=== PATIENT | female | born 1935 | race Caucasian/White ===

== ENCOUNTER 2017-12-14 12:55 | Emergency (ER) | payer MEDICARE ==
--- NOTE | 2017-12-14 13:26 | Emergency Department Record ---
History of Present Illness - General Chief Complaint: Fall Injury Stated Complaint: FALL HIT HEAD Time Seen by Provider: 12/14/17 13:19 Source: Patient, RN notes reviewed Mode of Arrival: Ambulatory - History of Present Illness Initial Comments: fall one week and hit her head and she has continued nausea and vomiting and balance is off MD Complaint: Fall Onset/Timin -: Week(s) Fall From: Down stairs (#) When Fall Occurred: # Days [employer] (7 days) Fall Witnessed: Yes, by family Place Fall Occurred: Home Loss of Consciousness: None Prolonged Down Time?: No Symptoms Prior to Fall: None Location: Head Context: Tripped/slipped Associated Symptoms: Denies - [place] Coma Scale Eye Response: (4) Open spontaneously Motor Response: (6) Obeys commands Verbal Response: (5) Oriented [place] Total: 15 - Related Data Allergies Allergy/AdvReac Type Severity Reaction Status Date / Time cephalexin monohydrate Allergy Unknown ITCHING Verified 12/14/17 13:10 [From [employer]] Travel Screening - Travel/Exposure Within Last 30 Days Have you traveled within the last 30 days?: No - Travel/Exposure Within Last Year Have you traveled outside the [place] in the last year?: No - Additonal Travel Details Have you been exposed to anyone with a communicable illness?: No - Travel Symptoms Symptom Screening: None Review of Systems Reviewed: No additional complaints except as noted below Constitutional: Reports: As per HPI. Denies: Chills, Fever, Malaise, Night sweats, Weakness, Weight change Eyes: Reports: As per HPI. Denies: Eye discharge, Eye pain, Photophobia, Vision change ENT: Reports: As per HPI. Denies: Congestion, Dental pain, Ear pain, Epistaxis , Hearing loss, Throat pain Respiratory: Reports: As per HPI. Denies: Cough, Dyspnea, Hemoptysis, Stridor, Wheezes Cardiovascular: Reports: As per HPI. Denies: Arrhythmia, Chest pain, Dyspnea on exertion, Edema, Murmurs, Orthopnea, Palpitations, Paroxysmal nocturnal dyspnea, Rheumatic Fever, Syncope Endocrine: Reports: As per HPI. Denies: Fatigue, Heat or cold intolerance, Polydipsia, Polyuria Gastrointestinal: Reports: As per HPI, Nausea, Vomiting. Denies: Abdominal pain , Constipation, Diarrhea, Hematemesis, Hematochezia, Melena Genitourinary: Reports: As per HPI. Denies: Abnormal menses, Discharge, Dyspareunia, Dysuria, Frequency, Hematuria, Incontinence, Retention, Urgency Musculoskeletal: Reports: As per HPI, Neck pain. Denies: Arthralgia, Back pain , Gout, Joint swelling, Myalgia Skin: Reports: As per HPI. Denies: Bruising, Change in color, Change in hair/ nails, Lesions, Pruritus, Rash Neurological: Reports: As per HPI, Headache. Denies: Abnormal gait, Confusion, Numbness, Paresthesias, Seizure, Tingling, Tremors, Vertigo, Weakness Psychiatric: Reports: As per HPI. Denies: Anxiety, Auditory hallucinations, Depression, Homicidal thoughts, Suicidal thoughts, Visual hallucinations Hematological/Lymphatic: Reports: As per HPI. Denies: Anemia, Blood Clots, Easy bleeding, Easy bruising, Swollen glands Past Medical History - SOCIAL HISTORY Smoking Status: Current every day smoker Alcohol Use: None Drug Use: None - RESPIRATORY Hx Respiratory Disorders: Yes Hx COPD: Yes - CARDIOVASCULAR Hx Cardio Disorders: No - NEURO Hx Neuro Disorders: No Hx Dizziness: Yes (past week when lying down) - GI Hx GI Disorders: No - Hx Genitourinary Disorders: No Comment:: complete hysterectomy - ENDOCRINE Hx Endocrine Disorders: No - MUSCULOSKELETAL Hx Musculoskeletal Disorders: Yes Hx Arthritis: Yes (fingers) Hx Osteoporosis: Yes - PSYCH Hx Psych Problems: No - HEMATOLOGY/ONCOLOGY Hx Hematology/Oncology Disorders: No Hx Cancer: Yes (uterine cancer) Hx Chemotherapy: No Hx Radiation Therapy: No Hx Blood Transfusions: No Family Medical History Any Significant Family History?: No Physical Exam - General General Appearance: Alert, Oriented x3, Cooperative, No acute distress - Head Head exam: Normal inspection - Eye Eye exam: Normal appearance, PERRL Pupils: Normal accommodation - ENT ENT exam: Normal exam, Mucous membranes moist, Normal external ear exam, Normal orophraynx, TM's normal bilaterally Ear exam: Normal external inspection. negative: External canal tenderness Nasal Exam: Normal inspection. negative: Discharge, Sinus tenderness Mouth exam: Normal external inspection, Tongue normal Teeth exam: Normal inspection. negative: Dental caries Throat exam: Normal inspection. negative: Tonsillar erythema, Tonsillar exudate - Neck Neck exam: Normal inspection, Full ROM. negative: Tenderness - Respiratory Respiratory exam: Normal lung sounds bilaterally. negative: Respiratory distress - Cardiovascular Cardiovascular Exam: Regular rate, Normal rhythm, Normal heart sounds - GI/Abdominal GI/Abdominal exam: Soft, Normal bowel sounds. negative: Tenderness - Rectal Rectal exam: Deferred - exam: Deferred - Extremities Extremities exam: Normal inspection, Full ROM, Normal capillary refill. negative: Tenderness - Back Back exam: Reports: Normal inspection, Full ROM. Denies: Muscle spasm, Rash noted, Tenderness - Neurological Neurological exam: Alert, Normal gait, Oriented X3, Reflexes normal - Psychiatric Psychiatric exam: Normal affect, Normal mood - Skin Skin exam: Dry, Intact, Normal color, Warm Course Vital Signs 12/14/17 13:13 Temperature 98.1 F Pulse Rate 77 Respiratory 18 Rate Blood Pressure 122/68 Pulse Ox 96 - Reevaluation(s) Reevaluation #1: patient is refusing to stay in the hospital and will give one liter of saline and reasses 12/14/17 15:21 12/14/17 16:27 Risks discussed of going home Medical Decision Making - Data Complexity MDM Data: Labs Ordered and/or Reviewed, X-Ray Ordered and/or Reviewed (CT head neg , cervical spine xray neg) - Lab Data Result diagrams: 12/14/17 13:35 12/14/17 13:35 Disposition Clinical Impression: Hyponatremia Vomiting Qualifiers: Vomiting type: unspecified Vomiting Intractability: non-intractable Nausea presence: with nausea Qualified Code(s): R11.2 - Nausea with vomiting, unspecified Fall Qualifiers: Encounter type: initial encounter Qualified Code(s): W19.XXXA - Unspecified fall, initial encounter Disposition: Home, Self-Care Condition: (1) Good Additional Instructions: follow up with Dr. Zaman tomorrow 10:00 am increase salt in diet limit water to one quart a day Forms: Patient Portal Access Time of Disposition: 16:27 Quality - Quality Measures Quality Measures: N/A - Blood Pressure Screening Does Patient Have Any of the Following: No Blood Pressure Classification: Pre-Hypertensive BP Reading Systolic Measurement: 122 Diastolic Measurement: 68 Screening for High Blood Pressure: < Pre-Hypertensive BP, F/U Documented > [ G8950] Pre-Hypertensive Follow-up Interventions: Referral to alternative/primary care provider.
[2017-12-14] MEDS: ONDANSETRON HCL IV 4 MG/2 ML VIAL IVP ONE (13:40)
[2017-12-14 13:55] LABS: BASO % 0.8 % (0-6); EOS % 0.3 % (0-6); GRAN % 65.3 % (47-80); HEMATOCRIT 34.7 % (35.0-47.0); HEMOGLOBIN 11.9 gm/dl (11.6-16.0); LYMPH % 23.4 % (16-45); MEAN CELL VOLUME 89.4 fl (81-97); MEAN CORPUSCULAR HEMOGLOBIN 30.7 pg (27-33); MEAN CORPUSCULAR HGB CONC 34.3 g/dl (32-36); MEAN PLATELET VOLUME 8.5 fl (7.4-10.4); MONO % 10.2 % (0-9); PLATELET COUNT 492 K/uL (130-400); RED BLOOD COUNT 3.88 M/uL (3.80-5.40); RED CELL DISTRIBUTION WIDTH 14.1 % (11.5-14.5); WHITE BLOOD COUNT W/O DIFF 6.1 K/uL (4.2-12.2)
[2017-12-14 14:05] LABS: BLOOD UREA NITROGEN 11 mg/dL (8-23); CREATININE 0.4 mg/dL (0.5-0.9); EST GLOMERULAR FILTRATION RATE > 60 mL/min
[2017-12-14 14:08] LABS: GLUCOSE,RANDOM 88 mg/dL (74-109)
[2017-12-14] MEDS: 0.9 % SODIUM CHLORIDE 1000ML 1,000 ML IV ONE (15:22)
[2017-12-14] MEDS ORDERED: 0.9 % SODIUM CHLORIDE 1000ML 1,000 ML IV SCH (15:30)
--- NOTE | 2017-12-15 19:25 | CT SCAN REPORT ---
EXAM: CT SCAN HEAD WO CONTRAST HISTORY: PATIENT TRIPPED AND FELL AND HIT HEAD WITH HEADACHE, DIZZINESS, NAUSEA , AND VOMITING. TECHNIQUE: Axial CT scan of the head performed without IV contrast. COMPARISON: None. ENCOUNTER: Initial. FINDINGS: No definite acute intracranial hemorrhage identified. No focal mass effect or midline shift apparent. Mild generalized atrophy is present. Chronic- appearing deep white matter changes are seen, nonspecific but likely representing some chronic small vessel deep white matter ischemic disease. No definite acute infarct or intracranial mass lesion seen. Some mild basal ganglia calcification is present bilaterally. No depressed calvarial fracture evident. IMPRESSION: 1. NO DEFINITE ACUTE INTRACRANIAL HEMORRHAGE OR FOCAL MASS EFFECT EVIDENT. 2. GENERALIZED ATROPHY WITH CHRONIC-APPEARING DEEP WHITE MATTER CHANGES. 3. SOME BASAL GANGLIA CALCIFICATION BILATERALLY. JOB NUMBER: [id number] [facility]
--- NOTE | 2017-12-15 19:31 | CT SCAN REPORT ---
EXAM: CT SCAN CERVICAL SPINE WO CONTRAST HISTORY: PATIENT FELL AND HIT BACK OF HEAD LAST WEEK, DIZZY WITH NAUSEA AND VOMITING SINCE. TECHNIQUE: Axial CT scan of the entire cervical spine performed without IV contrast. COMPARISON: No prior cervical CT with which to compare. ENCOUNTER: Initial. FINDINGS: Apical pleural thickening is present bilaterally. No definite fracture of the cervical spine identified. No prevertebral soft tissue swelling is seen. There is narrowing of numerous cervical interspaces, most marked involving the third through the sixth with some associated hypertrophic spurring. There is fusion of the right C4-5 facet articulation and also multilevel facet joint arthropathy in the cervical spine. Mild cervical curve convex to the left. There is central stenosis at the C5-6 and C6-7 levels. Multilevel foraminal stenosis as well. Note is made of a rounded, approximately 7 mm radiolucency in the right side of the body of T2, which is nonspecific. IMPRESSION: 1. NO DEFINITE FRACTURE OR PREVERTEBRAL SOFT TISSUE SWELLING SEEN. 2. DIFFUSE DEGENERATIVE CHANGES IN THE CERVICAL SPINE, DETAILED ABOVE. ASSOCIATED CENTRAL STENOSIS AT THE C5-6 AND C6-7 LEVELS. 3. THERE IS A NONSPECIFIC ROUNDED RADIOLUCENCY IN THE BODY OF T2, APPROXIMATELY 7 MM IN SIZE. JOB NUMBER: [id number] [facility]
== END 2017-12-14 16:39 | disposition home or self-care (01) ==
LOC: ER 12:55
DX: S09.90XA Unspecified injury of head, initial encounter (principal); E87.1 Hypo-osmolality and hyponatremia; R11.2 Nausea with vomiting, unspecified; R42 Dizziness and giddiness; J44.9 Chronic obstructive pulmonary disease, unspecified; G89.29 Other chronic pain; M54.5 Low back pain; M25.551 Pain in right hip; M25.552 Pain in left hip; F17.210 Nicotine dependence, cigarettes, uncomplicated; W01.10XA Fall on same level from slipping, tripping and stumbling with subsequent striking against unspecified object, initial encounter; Y92.009 Unspecified place in unspecified non-institutional (private) residence as the place of occurrence of the external cause
CPT/HCPCS: 70450; 72110; 72125; 80048; 85025; 85730; 96361; 96374; 99284; J2405

== ENCOUNTER 2018-03-20 11:37 | Emergency (ER) | payer MEDICARE ==
[2018-03-20 12:31] LABS: BASO % 0.1 % (0-6); EOS % 0.1 % (0-6); HEMATOCRIT 40.2 % (35.0-47.0); HEMOGLOBIN 13.4 gm/dl (11.6-16.0); LYMPH % 5.6 % (16-45); MEAN CORPUSCULAR HEMOGLOBIN 31.7 pg (27-33); MEAN CORPUSCULAR HGB CONC 33.3 g/dl (32-36); MONO % 3.6 % (0-9); PLATELET COUNT 322 K/uL (130-400); RED BLOOD COUNT 4.23 M/uL (3.80-5.40); RED CELL DISTRIBUTION WIDTH 17.5 % (11.5-14.5); WHITE BLOOD COUNT W/O DIFF 14.9 K/uL (4.2-12.2)
[2018-03-20] MEDS: SODIUM CHLORIDE 0.9% 500 ML IV ONE (12:36)
--- NOTE | 2018-03-20 12:36 | Emergency Department Record ---
History of Present Illness - General Chief complaint: Swelling of legs Stated complaint: LOWER LEG EDEMA/SOB Time Seen by Provider: 03/20/18 11:56 Source: Patient, Family Mode of Arrival: Ambulatory Limitations: No limitations - History of Present Illness Initial comments: The patient is here due to multiple complaints for at least a month. The patient has had progressive weakness with leg swelling, fatigue, weight loss, difficulty swallowing and mild confusion for at least a month. She has seen her PCP multiple times for it and did have a CXR 6 days ago that did demonstrate a large L hilar mass. Now she is not able to ambulate so her family did bring her to the ER. The patient did fall a couple of weeks ago and may have hit her head. MD Complaint: Extremity swelling Onset/Timin -: Month(s) Location: Bilateral, Lower Leg History of Same: Yes Consistency: Constant - Related Data Home Medications Medication Instructions Recorded Confirmed Last Taken Fluticasone Propionate [Flonase] 2 spray EACH NARES DAILY 03/20/18 03/20/18 Unknown Sertraline HCl [Zoloft] 25 mg PO DAILY 03/20/18 03/20/18 03/17/18 Tramadol HCl [Ultram] 50 mg PO BID 03/20/18 03/20/18 Unknown Allergies Allergy/AdvReac Type Severity Reaction Status Date / Time cephalexin monohydrate Allergy Unknown ITCHING Verified 03/20/18 11:59 [From KEFLEX] Travel Screening - Travel/Exposure Within Last 30 Days Have you traveled within the last 30 days?: No - Travel/Exposure Within Last Year Have you traveled outside the [place] in the last year?: No - Additonal Travel Details Have you been exposed to anyone with a communicable illness?: No - Travel Symptoms Symptom Screening: None Review of Systems Constitutional: Denies: Chills, Fever Eyes: Denies: Eye discharge ENT: Denies: Congestion Respiratory: Denies: Cough, Dyspnea Cardiovascular: Reports: Dyspnea on exertion. Denies: Arrhythmia, Chest pain Endocrine: Reports: Fatigue Gastrointestinal: Reports: Abdominal pain, Diarrhea, Nausea Genitourinary: Denies: Dysuria Musculoskeletal: Denies: Arthralgia Past Medical History - SOCIAL HISTORY Smoking Status: Current every day smoker - RESPIRATORY Hx Respiratory Disorders: Yes Hx COPD: Yes - CARDIOVASCULAR Hx Cardio Disorders: No - NEURO Hx Neuro Disorders: Yes Hx Dizziness: Yes (past week when lying down) - GI Hx GI Disorders: No - Hx Genitourinary Disorders: No Comment:: complete hysterectomy - ENDOCRINE Hx Endocrine Disorders: No - MUSCULOSKELETAL Hx Musculoskeletal Disorders: Yes Hx Arthritis: Yes (fingers) Hx Osteoporosis: Yes - PSYCH Hx Psych Problems: No - HEMATOLOGY/ONCOLOGY Hx Hematology/Oncology Disorders: No Hx Cancer: Yes (uterine cancer) Hx Chemotherapy: No Hx Radiation Therapy: No Hx Blood Transfusions: No Family Medical History Any Significant Family History?: No Physical Exam - General General Appearance: Alert, Cooperative, No acute distress - Head Head exam: Atraumatic, Normocephalic, Normal inspection - Eye Eye exam: Normal appearance, PERRL - Neck Neck exam: Normal inspection, Full ROM. negative: Tenderness - Respiratory Respiratory exam: Normal lung sounds bilaterally. negative: Respiratory distress - Cardiovascular Cardiovascular Exam: Irregular rhythm. negative: Normal rhythm - GI/Abdominal GI/Abdominal exam: Other (There is a large very hard mass in the mid abdomen.). negative: Soft - Extremities Extremities exam: Pedal edema (2+ bilaterally.). negative: Normal inspection Course Vital Signs 03/20/18 11:47 Temperature 98.1 F Pulse Rate 111 H Respiratory 20 Rate Blood Pressure 94/59 Pulse Ox 92 L - Reevaluation(s) Reevaluation #1: The patient is resting comfortably with no new complaints. I did discuss the recent results with the patient and family. I did recommend transfer to [facility] and the patient is reluctant to do so. I also did discuss the issues with Dr. Zaman and he agrees with the plan. 03/20/18 14:00 03/20/18 15:40 Reevaluation #2: The patient now is agreeing to the transfer to [facility]. I did discuss the case with Dr. Castaneda who did accept the patient to the hospital. We will send all the lab and xray results with the patient. 03/20/18 15:40 03/20/18 17:26 Medical Decision Making - Data Complexity MDM Data: Labs Ordered and/or Reviewed, X-Ray Ordered and/or Reviewed, EKG Ordered and/or Reviewed - Lab Data Result diagrams: 03/20/18 12:18 03/20/18 12:00 - EKG Data -: EKG Interpreted by Me EKG: No Acute Changes (ST at 106, LAFB, Nonspecific T changes anterior leads. Prolonged QT interval.) - Radiology Data Radiology results: Report reviewed (Head CT: Neg Abd/pelvis CT: Extensive liver met dz with enlargement. Multiple mets to lungs also.) Disposition Disposition: Transfer Clinical Impression: Metastatic cancer Disposition: Acute Care Hospital Transfer Transfer To: [facility] Reason For Transfer: Oncology Accepting Physician: Tonya Time Discussed w/Accepting Physician: 16:08 Condition: (2) Stable Forms: Patient Portal Access Time of Disposition: 16:08 Quality - Quality Measures Quality Measures: N/A - Blood Pressure Screening View Details: Yes Does Patient Have Any of the Following: No Blood Pressure Classification: Pre-Hypertensive BP Reading Systolic Measurement: 137 Diastolic Measurement: 72 Screening for High Blood Pressure: < Pre-Hypertensive BP, F/U Documented > [ G8950] Pre-Hypertensive Follow-up Interventions: Referral to alternative/primary care provider.
[2018-03-20 12:43] LABS: INR 1.1; PARTIAL THROMBOPLASTIN TIME 25.8 SECONDS (24.5-39.1); PROTHROMBIN TIME (PATIENT) 11.5 SECONDS (9.5-12.1)
[2018-03-20 12:45] LABS: BLOOD UREA NITROGEN 36 mg/dL (8-23); CREATININE 0.7 mg/dL (0.5-0.9); EST GLOMERULAR FILTRATION RATE > 60 mL/min
[2018-03-20 12:46] LABS: TOTAL PROTEIN 6.1 g/dL (6.6-8.7)
[2018-03-20 12:48] LABS: GLUCOSE,RANDOM 98 mg/dL (74-109)
[2018-03-20 12:50] LABS: ALBUMIN 3.6 g/dL (4.0-5.0); ALT/SGPT 101 U/L (<33); AST/SGOT 171 U/L (10.0-35.0); BILIRUBIN,DIRECT 1.7 mg/dL (0-0.3)
[2018-03-20 12:51] LABS: ALKALINE PHOSPHATASE 312 U/L (35-104); LIPASE 170 U/L (13-60)
[2018-03-20 13:15] LABS: CREATINE PHOSPHOKINASE 162 U/L (26-192)
[2018-03-20] MEDS: POTASSIUM CHLORIDE 20 MEQ/15ML CUP PO ONE (13:31)
[2018-03-20] MEDS: POTASSIUM CHLORIDE 20 MEQ TABLET PO ONE (13:59)
[2018-03-20 17:11] LABS: URINE APPEARANCE CLEAR; URINE BILIRUBIN MODERATE (NEGATIVE); URINE BLOOD NEGATIVE (NEGATIVE); URINE COLOR ORANGE; URINE GLUCOSE (UA) NEGATIVE (NEGATIVE); URINE KETONE TRACE (NEGATIVE); URINE LEUKOCYTE ESTERASE TRACE (NEGATIVE); URINE NITRITE NEGATIVE (NEGATIVE); URINE UROBILINOGEN >=8.0 E.U./dL (0.20 - 1.00)
[2018-03-20] MEDS: 0.9 % SODIUM CHLORIDE 1,000 ML BAG IV ONE (17:16)
[2018-03-20 17:29] LABS: URINE BACTERIA 1+
[2018-03-20 17:30] LABS: URINE WHITE BLOOD CELL CAST 0-3 /lpf
--- NOTE | 2018-03-21 09:14 | CT SCAN REPORT ---
EXAM: CT OF THE BRAIN HISTORY: FALL. TECHNIQUE: CT of the brain without contrast was obtained. Comparison: Prior CT brain from 12/14/17. FINDINGS: The globes are intact. The paranasal sinuses and mastoid air cells are unremarkable. No displaced or depressed skull fracture. There is a stable area of sclerosis involving the left frontal parietal calvarium. Negative for intra or extraaxial hemorrhage. Bilateral basal ganglia calcifications. CT is limited for the evaluation of acute infarct. No CT evidence for large or territorial acute infarct. Diffuse atrophy with small vessel ischemic change. No mass or midline shift. Stable coarse calcification in the left temporal region. IMPRESSION: 1. NEGATIVE FOR ACUTE INTRACRANIAL ABNORMALITY. ATROPHY WITH SMALL VESSEL ISCHEMIC CHANGE. 2. STABLE NONSPECIFIC SCLEROTIC CHANGE IN THE LEFT FRONTAL PARIETAL CALVARIUM. JOB NUMBER: [id number] [facility]
--- NOTE | 2018-03-21 09:26 | CT SCAN REPORT ---
EXAM: CT OF THE ABDOMEN AND PELVIS WITHOUT CONTRAST HISTORY: FALL. TECHNIQUE: CT of the abdomen and pelvis was performed without oral or IV contrast. This limits evaluation of bowel and solid visceral organs. Comparison: Prior CT from 11/13/12. FINDINGS: Limited evaluation of the lung bases shows emphysematous changes as well as areas of bronchiectasis bilaterally. There is an approximately 2.6 x 1.7 cm cm soft tissue nodule within the lingula as well as an area of nodularity in the medial right lung base measuring 13 mm. Findings are concerning for metastatic disease. Spiculated nodule in the medial right lung base measuring 11 mm is also present. Approximately 9 mm right middle lobe nodule. Approximately 9 mm nodule of the posterior left lung base. The osseous structures show osteopenia with degenerative changes throughout the lumbar spine. Prominent superior end plate Schmorl's node deformity of T12. Probable hemangioma of T12, as before. There are enumerable poorly defined masses within the liver consistent with metastatic disease. Findings appear near from the prior exam. Diffuse hepatomegaly. Splenic granulomata. Limited evaluation of the left adrenal gland and pancreas is unremarkable. The right adrenal gland is not well seen. Nonobstructing 4 mm left renal calculus. Severe atheromatous change. There is a right pelvic kidney. Small volume of ascites. Sigmoid diverticulosis without CT evidence for diverticulitis. Large amount of stool in the colon. No free air. No gross evidence for bowel obstruction. IMPRESSION: 1. EXTENSIVE HEPATIC METASTASIS WELL ENUMERABLE PULMONARY NODULES, LIKELY METASTATIC WELL. SMALL VOLUME OF ASCITES. 2. RIGHT PELVIC KIDNEY. NONOBSTRUCTING LEFT RENAL CALCULUS. 3. SIGMOID DIVERTICULOSIS WITHOUT CT EVIDENCE FOR DIVERTICULITIS. J[facility]BER: [id number] [facility]
--- NOTE | 2018-03-21 09:29 | RADIOLOGY REPORT ---
EXAM: CHEST, TWO VIEWS HISTORY: CHEST PAIN. TECHNIQUE: Frontal and lateral views of the chest were obtained. Comparison: Prior chest x-ray from 03/14/18. FINDINGS: The heart size is normal. Diffuse osteopenia. Underlying emphysema. No pneumothorax. Redemonstrated is an area of soft tissue density in the region of the left AP window for which adenopathy/mass is not excluded. No pneumothorax. IMPRESSION: UNDERLYING EMPHYSEMA WITH FULLNESS OF THE AP WINDOW AGAIN SUSPICIOUS FOR ADENOPATHY OR MASS. SIMILAR FINDINGS WERE PRESENT PREVIOUSLY. OSTEOPENIA. J[facility]BER: [id number] [facility]
== END 2018-03-20 17:26 | disposition short-term general hospital (02) ==
LOC: ER 11:37
DX: R53.1 Weakness (principal); C22.9 Malignant neoplasm of liver, not specified as primary or secondary; C78.01 Secondary malignant neoplasm of right lung; J44.9 Chronic obstructive pulmonary disease, unspecified; M81.0 Age-related osteoporosis without current pathological fracture; R94.31 Abnormal electrocardiogram [ECG] [EKG]; M79.605 Pain in left leg; M79.604 Pain in right leg
CPT/HCPCS: 70450; 71046; 74176; 80048; 80076; 81001; 82550; 82553; 83690; 83880; 84484; 85027; 85610; 85730; 93005; 93010; 99285; J7030